=== PATIENT | male | born 1980 | race Caucasian/White ===

== ENCOUNTER 2021-02-18 16:54 | Emergency (ER) | payer OTHER ==
[~2021-02-18] VITALS: Ht 182.9 cm; Wt 102.1 kg
[2021-02-18] MEDS ORDERED: MEN 50 PLUS MU1 EACH PO (17:02)
[2021-02-18 17:38] LABS: ABSOLUTE NEUTROPHILS 4.5 thou/uL (1.4-8.2); BASOPHILS 0.3 % (0.0-2.0); EOSINOPHILS 0.3 % (0.0-3.0); HEMATOCRIT 44.4 % (42.0-52.0); HEMOGLOBIN 15.1 gm/dL (14.0-18.0); LYMPHOCYTES 28.3 % (24.0-44.0); MCH 28.8 pg (26.0-34.0); MCV 84.6 fL (80.0-100.0); MONOCYTES 11.7 % (1.0-8.0); PLATELET COUNT 353 thou/uL (150-400); POLYS 59.4 % (36.0-66.0); RBC 5.25 mil/uL (4.50-6.00); WBC 7.5 thou/uL (4.0-11.0)
[2021-02-18 17:49] LABS: CALCIUM 9.5 mg/dL (8.5-10.1); CREATININE 1.1 mg/dL (0.7-1.3); POTASSIUM 4.1 mmol/L (3.5-5.1)
[2021-02-18 17:55] LABS: TOTAL BILIRUBIN 0.5 mg/dL (0.2-1.0); TOTAL PROTEIN 8.2 g/dL (6.4-8.2)
[2021-02-18 18:53] VITALS: BP 131/74
[2021-02-18 18:58] LABS: URINE BILIRUBIN NEGATIVE (Negative); URINE BLOOD NEGATIVE (Negative); URINE CLARITY CLEAR; URINE COLOR YELLOW; URINE GLUCOSE-RANDOM* NEGATIVE (Negative); URINE KETONES NEGATIVE (Negative); URINE LEUKOCYTES-REFLEX NEGATIVE (Negative); URINE NITRITE-REFLEX NEGATIVE (Negative); URINE PROTEIN (DIPSTICK) NEGATIVE (Negative); URINE UROBILINOGEN 0.2 E.U./dl (0.2-1.0)
[2021-02-18 19:05] LABS: AMP/METHAMP Negative (Negative); BARBITURATES Negative (Negative); BENZODIAZEPINES Negative (Negative); COCAINE Negative (Negative); METHADONE Negative (Negative); OPIATES Negative (Negative); PCP Negative (Negative)
--- NOTE | 2021-02-22 07:07 | EKG ---
[address] [place] [place] [address] ELECTROCARDIOGRAM REPORT Name: GISELLE CANTU Room #: DEP MICHEL Vigil#: [id number] Admission: 02/18/21 Attend Phys: Discharge: 02/18/21 Date of : [birth year] Report #: [id number] [facility] ED Test Date: 2021-02-18 Test Time: 17:05:02 Pat Name: GISELLE CANTU Department: Room: Gender: [employer] Hanger: ISAAK : 1980 Requested By: Radha Andres Order Number: [id number] MD: Jamir Gamboa Measurements Intervals [place] Rate: 86 P: -12 KS: 139 QRS: -25 QRSD: 116 T: 3 QT: 365 QTc: 437 Interpretive Statements Sinus rhythm Left ventricular hypertrophy Baseline wander in lead(s) V2 No previous ECG available for comparison Electronically Signed On 02-22-2021 7:07:38 SENIOR PRODUCT INTEGRITY ENGINEER by Jamir Gamboa [email or web address] <ELECTRONICALLY SIGNED> By: Jamir Gamboa MD, [facility] 02/22/21 0707 1705 1705 Jamir Gamboa MD, FACC /EPI
== END 2021-02-18 18:54 | disposition home or self-care (01) ==
LOC: ER 16:54
PROVIDERS: Physician Assistant
DX: U09.9 Post COVID-19 condition, unspecified (principal); F06.4 Anxiety disorder due to known physiological condition; R74.01 Elevation of levels of liver transaminase levels; R00.2 Palpitations; F41.9 Anxiety disorder, unspecified; Z79.899 Other long term (current) drug therapy

== ENCOUNTER 2021-02-25 13:14 | Emergency (ER) | payer OTHER ==
[~2021-02-25] VITALS: Ht 182.9 cm; Wt 99.8 kg
[~2021-02-25 13:14] MED LIST: MEN 50 PLUS MU1 EACH PO
[2021-02-25 13:56] LABS: BASOPHILS 0.6 % (0.0-2.0); HEMATOCRIT 43.3 % (42.0-52.0); HEMOGLOBIN 15.1 gm/dL (14.0-18.0); LYMPHOCYTES 19.8 % (24.0-44.0); MCH 29.6 pg (26.0-34.0); MCHC 34.9 g/dL (28.0-37.0); MCV 84.8 fL (80.0-100.0); MONOCYTES 8.9 % (1.0-8.0); PLATELET COUNT 440 thou/uL (150-400); POLYS 70.7 % (36.0-66.0); RDW 12.8 % (10.5-14.5); WBC 11.3 thou/uL (4.0-11.0)
[2021-02-25 14:14] LABS: CREATININE 1.1 mg/dL (0.7-1.3); POTASSIUM 3.6 mmol/L (3.5-5.1)
[2021-02-25] MEDS ORDERED: XANAX 0.5 MG0.5 M1 PO (14:54)
[2021-02-25] MEDS ORDERED: MECLIZINE HCL25 M1 PO (14:54)
[2021-02-25 15:59] VITALS: BP 133/76
--- NOTE | 2021-02-26 12:44 | EKG ---
[facility] [place] [address] ELECTROCARDIOGRAM REPORT Name: GISELLE CANTU Room #: DEP MICHEL Vigil#: [id number] Admission: 02/25/21 Attend Phys: Discharge: 02/25/21 Date of : [birth year] Report #: [id number] [facility] ED Test Date: 2021-02-25 Test Time: 13:19:41 Pat Name: GISELLE CANTU Department: Room: Gender: [employer]: PURA : 1980 Requested By: Richie Quach Order Number: [id number] MD: Reid Sousa Measurements Intervals [place] Rate: 87 P: 17 AL: 138 QRS: -5 QRSD: 114 T: 24 QT: 364 QTc: 438 Interpretive Statements Sinus rhythm Borderline intraventricular conduction delay Borderline T wave abnormalities Compared to ECG 02/18/2021 17:05:02 T-wave abnormality now present Left ventricular hypertrophy no longer present Electronically Signed On 02-26-2021 12:44:19 M[employer]IS[employer] INTELLIGENCE OFFICER by Reid Sousa [email or web address] <ELECTRONICALLY SIGNED> By: Reid Sousa MD 02/26/21 1244 1319 1319 Reid Sousa MD /JAMI
== END 2021-02-25 16:21 | disposition home or self-care (01) ==
LOC: ER 13:14
PROVIDERS: Emergency Medicine
DX: R42 Dizziness and giddiness (principal); F41.9 Anxiety disorder, unspecified; Z79.899 Other long term (current) drug therapy